=== PATIENT | male | born 1990 | race Caucasian/White ===

== ENCOUNTER 2017-06-20 18:23 | Emergency (ER) | payer MEDICAID, SELFPAY ==
[2017-06-20 18:24] VITALS: BP 130/82; PULSE 131; RESP 24; TEMP 37.2; O2SAT 98; BMI 24.3
--- NOTE | 2017-06-20 18:48 | EKG12_ITS ---
Test Reason : Blood Pressure : / mmHG Vent. Rate : 115 BPM Atrial Rate : 115 BPM P-R Int : 130 ms QRS Dur : 082 ms QT Int : 302 ms P-R-T Axes : 073 066 026 degrees QTc Int : 417 ms Sinus tachycardia Otherwise normal ECG Confirmed by HORTENCIA RING, MCKINLEY ([id number]), primer expeditor and drier DEBORAH LOPEZ ([id number] on 06/23/2017 12:51:45 PM Referred By: TREVOR Confirmed By:MCKINLEY BURNETT MD
--- NOTE | 2017-06-20 19:10 | RAD_ITS ---
STUDY: X-RAY CHEST REASON FOR EXAM: Male, 26 years old. Cough. Congestion. TECHNIQUE: PA and lateral views of the chest. COMPARISON: None. FINDINGS: The lungs are clear and expanded. There is no demonstrated pleural abnormality. Normal size heart. Normal mediastinum and ambika. Normal visualized pulmonary arteries. Normal visualized aortic arch and descending thoracic aorta. Normal visualized thoracic spine. Normal visualized ribs, clavicles, and shoulders. There is no demonstrated abnormality of the visualized soft tissue structures of the upper abdomen. RAD/Chest PA and Lateral IMPRESSION: Normal x-ray examination of the chest. Electronically Signed: Alex Hiutron MD at 19:44 EDT , Service support ,
[2017-06-20 19:13] LABS: Absolute Lymphocyte Count 1.39 X10^3/ul (0.83-4.51); Absolute Neutrophil Count 10.3 X10^3/uL (2.0-7.7); Basophil# 0.02 X10^3/uL; Basophil% 0.2 % (0-1); Eosinophil# 0.03 X10^3/uL; Eosinophils% 0.2 % (0-5); Hematocrit 46.6 % (40-54); Hemoglobin 15.8 g/dl (13.0-16.5); Lymphocyte # 1.39 X10^3/ul (4.0); Lymphocyte % 11.3 % (19-41); Mean Corp Hgb Conc 33.9 g/gl (32-36); Mean Corpuscular Hgb 31.3 pg (27.0-32.0); Mean Corpuscular Volume 92.5 fL (80-94); Mean Platelet Vol. 9.1 fl (6.2-12.0); Monocyte# 0.55 X10^3/uL; Monocyte% 4.5 % (0-10); Neutrophil # 10.25 X10^3/uL (2.7-7.7); Neutrophil % 83.4 % (47-70); POSITIVE COUNT NO; POSITIVE DIFFERENTIAL NO; POSITIVE MORPHOLOGY NO; Platelet Count 322 K/mm3 (150-450); RBC Distribution Width CV 12.2 % (11.6-14.6); RBC Distribution Width SD 40.8 fl (35.1-43.9); Red Blood Count 5.04 M/mm3 (4.6-6.2); White Blood Count 12.3 K/mm3 (4.4-11.0)
[2017-06-20 19:19] VITALS: O2SAT 95
[2017-06-20] MEDS: 0.9% Normal Saline 1,000 ML 999 ML IV ×2 (19:20→21:01)
[2017-06-20 19:35] LABS: Anion Gap 7 (5-15); BUN 11 mg/dL (7-18); BUN/Creat Ratio 9.6 RATIO (10-20); Calcium,Total 9.7 mg/dL (8.5-10.1); Chloride 104 mmol/L (98-107); Creatinine, Serum 1.15 mg/dL (0.70-1.30); EST Glomerular Filtration Rate 82 mL/min (>60); Est Glom Filt Rate - Afr Amer 99 mL/min (>60); Estimated Creatinine Clearance 98.19 ml/min; Glucose 146 mg/dL (74-106); Potassium 3.6 mmol/L (3.5-5.1); Sodium Level 139 mmol/L (136-145)
--- NOTE | 2017-06-20 19:52 | ED.RN ---
LACTIC 3.2
[2017-06-20 19:53] LABS: Lactic Acid 3.2 mmol/L (0.4-2.0)
[2017-06-20 21:00] VITALS: BP 113/73; PULSE 91; RESP 14; O2SAT 94
[2017-06-20 21:11] LABS: Bacteria 0 SEEN /hpf (None Seen); Red Blood Cells-Urine 0 SEEN /hpf (0-5); Squamous Epithelial Cells - UA 0 SEEN /hpf (0-5)
[2017-06-20 21:27] LABS: Color, Urine Yellow (Yellow); Glucose, Dipstick Normal (Normal); Ketone-Dipstick 5 mg/dl (Negative); Leukocyte Esterase-Dipstick 25 /ul (Negative); Nitrite-Dipstick Negative (Negative); Occult Blood-Urine Negative /ul (Negative); Protein-Dipstick 30 mg/dl (Negative); Urine Bilirubin Dipstick Negative (Negative); Urine Clarity Clear (Clear); Urine Urobilinogen 8 mg/dl (Normal)
[2017-06-20 21:47] LABS: Mucous, Urine 3+ /hpf (<or=2+); White Blood Cells 0-5 SEEN /hpf (0-5)
--- NOTE | 2017-06-20 22:12 | ED.DCSUM_ITS ---
- ER Visit Summary Date of Service: 06/20/17 Chief Complaint: Cough History of Present Illness: The patient is a 26 M with no primary care physician. He reports his cough began 10 days ago. Is productive of yellow/ green/brown sputum. He reports there were streaks of blood the other day. States he has had a fever to 104?. He has also had chills. He has a sore throat is 2 out of 10 severity. He has had mild shortness of breath and has been wheezing. Does not have an inhaler he uses. He denies any ankle swelling or calf pain. No personal or family history of DVT. No recent travel. No chest pain. Physical Examination: Vitals: 90.9, 130/82, 131, 24, 98% on room air which is not hypoxic. General: Well-nourished and well-developed. Head: Normocephalic atraumatic. Neck: Supple, no lymphadenopathy. No JVD. Nontender. Cardiovascular: Regular rate and rhythm. No murmurs. Respiratory: No respiratory distress. Clear to auscultation bilaterally. Abdominal: Soft, nontender, nondistended, normal bowel sounds. No guarding, rebound, or peritoneal signs. Back: Nontender. Extremities: Nontender, no edema. Skin: Normal color, no rash. Neurologic: Alert and oriented ?3. Cranial nerves II through XII are intact. Normal strength and sensation. Psych: Normal affect. Test Results: EKG is sinus tach at 115 with no acute changes. His heart rate in 2013 on EKG was 124. In 2008 it was 130. Chest x-ray shows chronic changes. CBC is more for white count 12.3 with 83 segmented neutrophils and 11 lymphocytes. Chem-7 more for glucose 146. UA is negative. Influenza was negative. Lactic acid is elevated at 3.2. Emergency Department Course and Treatment: Patient was given 2 L of normal saline and on repeat exam his heart rate is in the 90s. He is resting comfortably would like to go home. He is treated with Zithromax p.o. Treatment Plan: Patient be discharged Zithromax. Instructed to push fluids. Follow-up Dr. Jese Ruiz in 1 week if not improving. Return to the emergency department for any worsening symptoms. Disposition: To home in improved and stable condition. Impression: 1. URI. This note was generated with localbaconation software. It may contain incorrect words, spelling, and punctuation that were not noted in review of the chart prior to signing ED Disposition - Plan for ED Patient: Disposition: Home or Assisted Living Chief Complaint: Cough Instructions: ED Upper Resp Infec Abx Tx Prescriptions: Azithromycin [Zithromax] 250 mg PO DAILY #6 tablet Referrals: Jese Ruiz MD [STAFF PHYSICIAN] - 1 Week if not improving
[2017-06-20] MEDS: Azithromycin 250 MG Tablet 500 MG PO (22:38)
[2017-06-20 22:39] VITALS: BP 99/67; PULSE 78; RESP 18; O2SAT 98
[2017-06-20 23:08] LABS: Reflex Lactate? Y
== END 2017-06-20 22:39 | disposition home or self-care (01) ==
LOC: ED 19:11
PROVIDERS: Emergency Provider Emergency Medicine
DX: J06.9 Acute upper respiratory infection, unspecified (principal); Z72.0 Tobacco use
CPT/HCPCS: 71046; 80048; 81001; 83605; 85025; 87040; 87086; 87804; 93005; 96360; 96361; 99285; J7030

== ENCOUNTER 2017-07-03 20:59 | Emergency (ER) | payer MEDICAID, SELFPAY ==
[2017-07-03 21:01] VITALS: BP 155/68; PULSE 130; RESP 15; TEMP 37.3; O2SAT 94; BMI 24.7
--- NOTE | 2017-07-03 21:33 | ED.VISSUMM ---
- ER Visit Summary Date of Service: 07/03/17 Chief Complaint: Mental status change History of Present Illness: The patient is a 26 M reported called out for mental status change. However EMS arrival patient is awake sitting on the couch. Reported patient had slurred speech prior. Patient denies this. History of prediabetes. Patient currently states feels normal. He denies any alcohol or illicit drug use. He does smoke tobacco. There is no medications given to the patient for overdose reversals. Physical Examination: General: Alert and oriented ?3, no acute distress HEENT: Normocephalic, atraumatic. Moist mucosa membranes Neck: supple, nontender. Cardiovascular: Regular rate 114 and rhythm, no murmurs Respiratory: Normal breath sounds, symmetric, no distress Abdomen: Soft, nontender, nondistended Extremities: Nontender, no edema, pulses intact ?4 Neuro: no focal neurological deficits. Test Results: [] Emergency Department Course and Treatment: Patient heart rate recheck from triage 130 to 114. He denied alcohol or illicit drug use. Patient denies any symptoms. There is no focal neurological deficits. He is alert and oriented ?3. Discussed with no clear picture for workup with labs in EKG. However he declines this. States he would like to go home. His significant other is with him will take him home. Discussed bring him back or call 911 if symptoms return. They understand and agree with plan. Records were reviewed did note he had to overdose visits in the ED. Treatment Plan: [] Disposition: Discharge Impression: 1. Transient mental status change 2. Tachycardia This note was generated with [employer] dictation software. It may contain incorrect words, spelling, and punctuation that were not noted in review of the chart prior to signing ED Disposition - Plan for ED Patient: Disposition: Home or Assisted Living Chief Complaint: Alt LOC Diagnosis: Transient mental status change, Tachycardia Instructions: ED Confusion Referrals: Care Physician,No Primary [Primary Care Provider] - Additional Instructions: Follow-up with your doctor. Return if any worsening symptoms.
--- NOTE | 2017-07-03 21:37 | ED.DCSUM_ITS ---
- ER Visit Summary Date of Service: 07/03/17 Chief Complaint: Mental status change History of Present Illness: The patient is a 26 M reported called out for mental status change. However EMS arrival patient is awake sitting on the couch. Reported patient had slurred speech prior. Patient denies this. History of prediabetes. Patient currently states feels normal. He denies any alcohol or illicit drug use. He does smoke tobacco. There is no medications given to the patient for overdose reversals. Physical Examination: General: Alert and oriented ?3, no acute distress HEENT: Normocephalic, atraumatic. Moist mucosa membranes Neck: supple, nontender. Cardiovascular: Regular rate 114 and rhythm, no murmurs Respiratory: Normal breath sounds, symmetric, no distress Abdomen: Soft, nontender, nondistended Extremities: Nontender, no edema, pulses intact ?4 Neuro: no focal neurological deficits. Test Results: [] Emergency Department Course and Treatment: Patient heart rate recheck from triage 130 to 114. He denied alcohol or illicit drug use. Patient denies any symptoms. There is no focal neurological deficits. He is alert and oriented ? 3. Discussed with no clear picture for workup with labs in EKG. However he declines this. States he would like to go home. His significant other is with him will take him home. Discussed bring him back or call 911 if symptoms return. They understand and agree with plan. Records were reviewed did note he had to overdose visits in the ED. Treatment Plan: [] Disposition: Discharge Impression: 1. Transient mental status change 2. Tachycardia This note was generated with [employer] dictation software. It may contain incorrect words, spelling, and punctuation that were not noted in review of the chart prior to signing ED Disposition - Plan for ED Patient: Disposition: Home or Assisted Living Chief Complaint: Alt LOC Diagnosis: Transient mental status change, Tachycardia Instructions: ED Confusion Referrals: Care Physician,No Primary [Primary Care Provider] - Additional Instructions: Follow-up with your doctor. Return if any worsening symptoms.
[2017-07-03 21:45] VITALS: PULSE 114; RESP 16; O2SAT 98
--- NOTE | 2017-07-03 21:45 | ED.RN ---
REVIEWED D/C INSTRUCTIONS, FOLLOW UP CARE, AND S/S THAT WOULD WARRANT A RETURN TO THE ED WITH PT. PT VERBALIZED AN UNDERSTANDING AND DENIES FURTHER QUESTIONS FOR THIS RN. PT SKIN P/W/D, RESP EVEN AND UNLABORED, PT A&O X 3, NO DISTRESS NOTED. PT AMBULATED OUT OF ED, GAIT STEADY.
== END 2017-07-03 21:46 | disposition home or self-care (01) ==
PROVIDERS: Emergency Provider Emergency Medicine
DX: R41.82 Altered mental status, unspecified (principal); R00.0 Tachycardia, unspecified; F17.200 Nicotine dependence, unspecified, uncomplicated
CPT/HCPCS: 99284; J7030

== ENCOUNTER 2017-08-02 08:25 | Emergency (ER) | payer MEDICAID, SELFPAY ==
--- NOTE | 2017-08-02 08:25 | DT_ITS ---
This patient was seen during an EMR downtime August 01, 2017 - August 08, 2017. This patient may have a combination of paper and electronic documentation or all paper documentation. All documentation is viewable within the e-chart portion of [employer] for each patient visit.
[2017-08-12 17:50] LABS: Bedside Glucose 137 mg/dL (70-110)
== END 2017-08-02 09:00 | disposition home or self-care (01) ==
PROVIDERS: Emergency Provider Emergency Medicine
DX: T40.1X1A Poisoning by heroin, accidental (unintentional), initial encounter (principal); R41.82 Altered mental status, unspecified; Y92.9 Unspecified place or not applicable; F17.210 Nicotine dependence, cigarettes, uncomplicated
CPT/HCPCS: 82962; 96374; 99284; A4216

== ENCOUNTER 2017-08-24 10:50 | Inpatient (IN) | payer MEDICAID, SELFPAY ==
[2017-08-24 11:11] VITALS: BMI 22.1; BMI 22.2
[2017-08-24 11:34] VITALS: BP 115/64; PULSE 83; RESP 18; TEMP 36.8; O2SAT 100
[2017-08-24] MEDS: Buprenorphine HCl 2 MG TAB.SUBL SL ×2 (11:55→20:03)
[2017-08-24] MEDS: Dicyclomine 10 MG Capsule 20 MG PO ×2 (11:55→22:33)
[2017-08-24 11:57] VITALS: BP 115/64; PULSE 83; RESP 18; TEMP 36.8
--- NOTE | 2017-08-24 12:20 | PCM.HP.STD ---
Problem List (1) Chronic hepatitis C Status: Chronic (2) Tobacco abuse Status: Chronic (3) Heroin abuse Status: Chronic History of Present Illness Date of Admission: 08/24/17 Chief Complaint: Opioid withdrawal. The patient is a 26 year old M with past medical history as mentioned above presented to the [facility] service office requesting admission for medical stabilization due to acute withdrawal. Patient has been using IV heroin total of around 15 years. He went into detox program back in October, but he relapsed. He has been using IV heroin daily for the last 4 months and his last dose was yesterday. Before that, he was clean for couple of months. He admitted using occasional methamphetamines as well. His main presenting complaints today were abdominal pain, described as abdominal cramps, generalized, mild, 4 out of 10 in severity, associated with mild diarrhea and also complains of anxiety and restlessness. He denies fever chills. He reported crawling sensation on his skin as well. He denied chest pain or shortness of breath. At this time, vital signs are stable. He is being admitted for acute opioid withdrawal for medical stabilization. Past Medical History Past Medical History (Chronic Problems): Chronic Problems Chronic hepatitis C (Chronic) Tobacco abuse (Chronic) Heroin abuse (Chronic) Allergies No Known Allergies Allergy (Verified 07/03/17 21:08) Home Medications: Ambulatory Orders Medication Instructions Recorded NK [NK] 07/03/17 Surgical History: no surgical history Psychiatric History: No pertinent psych hx Lives: Spouse/ Significant Other Smoking Status: Current every day smoker Tobacco Use: Cigarettes Alcohol: None Drugs: Heroin - *Family History Maternal History Items: Hypertension Paternal History Items: No pertinent history Review of Systems Constitutional: Denies: Anorexia, Chills, Fever, Weakness Eyes: Denies: Blurred vision, Double vision, Drainage, Redness HEENT: Denies: Difficulty Hearing, Ear Pain, Eye Pain, Nasal Congestion, Sore Throat Cardiovascular: Denies: Chest Pain, Chest Tightness, Edema, Light Headedness, Palpitations, Syncope Respiratory: Denies: Cough, Pleuritic Pain, Shortness of Breath, Shortness of breath upon exertion, Sputum production, Wheezing Gastrointestinal: Reports: Abdominal Pain, Diarrhea. Denies: Constipation, Hematochezia, Nausea, Vomiting Genitourinary: Denies: Dysuria, Frequency, Hematuria Musculoskeletal: Denies: Arm Pain, Back Pain, Foot Pain Skin: Denies: Dryness, Rash Neurological: Denies: Balance problems, Change in Speech, Slurred speech, Headaches, Incoordination, Numbness Psychiatric: Denies: Anxiety, Depression Endocrine: Denies: Change in Body Habitus, Polydipsia VTE Information - Inpt Only VTE Present on Admission: No VTE Mechan Device Prophylaxis: None VTE Pharm Prophylaxis ordered?: No - Physical Exam General: Alert, Oriented x3, Cooperative, No apparent distress HEENT: Atraumatic, PERRLA, EOMI, Normocephalic Oral: Moist Mucosa, No Gingival or Mucosal Lesions/ Ulcerations Neck: Supple, No JVD, Negative Carotid Bruits, Trachea Midline, Thyroid Normal Size and Texture Cardiovascular: Regular rate, Regular Rhythm, Normal S1, Normal S2, No murmurs Abdomen: Bowel Sounds Present, Soft, Non Tender, Non-Distended, No Hepato-splenomegaly Extremities: No clubbing, No cyanosis, No edema Skin: No rashes, No breakdown Lymphatic: No Cervical, Supraclavicular, or Inguinal Adenopathy Neurological: Cranial nerves II-XII grossly intact, Motor Exam 5/5 strength throughout Psych/Mental Status: Normal Affect, Appropriate, Alert and oriented to time, place, person, mood and affect Vital Signs Temp Pulse Resp BP Pulse Ox 98.2 F 83 18 115/64 100 08/24/17 11:57 08/24/17 11:57 08/24/17 11:57 08/24/17 11:57 08/24/17 11:34 Oxygen Delivery Method Room Air Weight: 150 lb Body Mass Index (BMI) 22.1 Laboratory Tests Past 24 Hrs 08/24/17 11:24 Ethyl Alcohol Pending Assessment/Plan This is a 26 years old male patient presented to the [facility] service office requesting admission for medical stabilization from acute opioid withdrawal. #1 acute opioid withdrawal: Patient has been using IV heroin daily for the last 4 months, has been clean for couple of months before that and his last dose was yesterday. He was admitted at [facility] for medical stabilization but he relapsed. At this time, vital signs are stable. Plan: Admit to [facility] floor, urine drug screen, blood alcohol level, initiate [facility] protocol with tapering course of Subutex, as needed Catapres, Bentyl, Vistaril, methocarbamol, Zofran, Mirapex and Seroquel. #2 polysubstance abuse: Patient admitted using occasional meth amphetamines but mainly, he used IV heroin. Plan as above. #3 chronic hepatitis C: Never been treated for it. Stable. #4 tobacco abuse: NicoDerm patch. #5 DVT prophylaxis: Low risk patient, no prophylaxis indicated. This note was generated with [employer] dictation software. It may contain incorrect words, spelling, and punctuation that were not noted in checking the note before signing. Code Visit Inpatient E&M: 77485 Init Hosp L2
--- NOTE | 2017-08-24 12:27 | HP.PCM_ITS ---
Problem List (1) Chronic hepatitis C Status: Chronic (2) Tobacco abuse Status: Chronic (3) Heroin abuse Status: Chronic History of Present Illness Date of Admission: 08/24/17 Chief Complaint: Opioid withdrawal. The patient is a 26 year old M with past medical history as mentioned above presented to the [facility] service office requesting admission for medical stabilization due to acute withdrawal. Patient has been using IV heroin total of around 15 years. He went into detox program back in October, but he relapsed. He has been using IV heroin daily for the last 4 months and his last dose was yesterday. Before that, he was clean for couple of months. He admitted using occasional methamphetamines as well. His main presenting complaints today were abdominal pain, described as abdominal cramps, generalized , mild, 4 out of 10 in severity, associated with mild diarrhea and also complains of anxiety and restlessness. He denies fever chills. He reported crawling sensation on his skin as well. He denied chest pain or shortness of breath. At this time, vital signs are stable. He is being admitted for acute opioid withdrawal for medical stabilization. Past Medical History Past Medical History (Chronic Problems): Chronic Problems Chronic hepatitis C (Chronic) Tobacco abuse (Chronic) Heroin abuse (Chronic) Allergies No Known Allergies Allergy (Verified 07/03/17 21:08) Home Medications: Ambulatory Orders Medication Instructions Recorded NK [NK] 07/03/17 Surgical History: no surgical history Psychiatric History: No pertinent psych hx Lives: Spouse/ Significant Other Smoking Status: Current every day smoker Tobacco Use: Cigarettes Alcohol: None Drugs: Heroin - *Family History Maternal History Items: Hypertension Paternal History Items: No pertinent history Review of Systems Constitutional: Denies: Anorexia, Chills, Fever, Weakness Eyes: Denies: Blurred vision, Double vision, Drainage, Redness HEENT: Denies: Difficulty Hearing, Ear Pain, Eye Pain, Nasal Congestion, Sore Throat Cardiovascular: Denies: Chest Pain, Chest Tightness, Edema, Light Headedness, Palpitations, Syncope Respiratory: Denies: Cough, Pleuritic Pain, Shortness of Breath, Shortness of breath upon exertion, Sputum production, Wheezing Gastrointestinal: Reports: Abdominal Pain, Diarrhea. Denies: Constipation, Hematochezia, Nausea, Vomiting Genitourinary: Denies: Dysuria, Frequency, Hematuria Musculoskeletal: Denies: Arm Pain, Back Pain, Foot Pain Skin: Denies: Dryness, Rash Neurological: Denies: Balance problems, Change in Speech, Slurred speech, Headaches, Incoordination, Numbness Psychiatric: Denies: Anxiety, Depression Endocrine: Denies: Change in Body Habitus, Polydipsia VTE Information - Inpt Only VTE Present on Admission: No VTE Mechan Device Prophylaxis: None VTE Pharm Prophylaxis ordered?: No - Physical Exam General: Alert, Oriented x3, Cooperative, No apparent distress HEENT: Atraumatic, PERRLA, EOMI, Normocephalic Oral: Moist Mucosa, No Gingival or Mucosal Lesions/ Ulcerations Neck: Supple, No JVD, Negative Carotid Bruits, Trachea Midline, Thyroid Normal Size and Texture Cardiovascular: Regular rate, Regular Rhythm, Normal S1, Normal S2, No murmurs Abdomen: Bowel Sounds Present, Soft, Non Tender, Non-Distended, No Hepato- splenomegaly Extremities: No clubbing, No cyanosis, No edema Skin: No rashes, No breakdown Lymphatic: No Cervical, Supraclavicular, or Inguinal Adenopathy Neurological: Cranial nerves II-XII grossly intact, Motor Exam 5/5 strength throughout Psych/Mental Status: Normal Affect, Appropriate, Alert and oriented to time, place, person, mood and affect Vital Signs Temp Pulse Resp BP Pulse Ox 98.2 F 83 18 115/64 100 08/24/17 11:57 08/24/17 11:57 08/24/17 11:57 08/24/17 11:57 08/24/17 11:34 Oxygen Delivery Method Room Air Weight: 150 lb Body Mass Index (BMI) 22.1 Laboratory Tests Past 24 Hrs 08/24/17 11:24 Ethyl Alcohol Pending Assessment/Plan This is a 26 years old male patient presented to the [facility] service office requesting admission for medical stabilization from acute opioid withdrawal. #1 acute opioid withdrawal: Patient has been using IV heroin daily for the last 4 months, has been clean for couple of months before that and his last dose was yesterday. He was admitted at [facility] for medical stabilization but he relapsed. At this time, vital signs are stable. Plan: Admit to [facility] floor, urine drug screen, blood alcohol level, initiate [facility] protocol with tapering course of Subutex, as needed Catapres, Bentyl, Vistaril, methocarbamol , Zofran, Mirapex and Seroquel. #2 polysubstance abuse: Patient admitted using occasional meth amphetamines but mainly, he used IV heroin. Plan as above. #3 chronic hepatitis C: Never been treated for it. Stable. #4 tobacco abuse: NicoDerm patch. #5 DVT prophylaxis: Low risk patient, no prophylaxis indicated. This note was generated with [employer] dictation software. It may contain incorrect words, spelling, and punctuation that were not noted in checking the note before signing. Code Visit Inpatient E&M: 02931 Init Hosp L2
[2017-08-24 12:46] LABS: Alcohol, Blood (Medical)-Serum < 3.0 mg/dL
[2017-08-24] MEDS: Methocarbamol 750 MG Tablet PO ×2 (13:15→22:32)
[2017-08-24] MEDS: Pramipexole Di-HCl 0.25 MG Tablet PO (13:15)
[2017-08-24] MEDS: cloNIDine HCl 0.1 MG Tablet PO ×2 (13:18→22:33)
[2017-08-24 14:00] VITALS: BP 121/59; PULSE 70; RESP 14; TEMP 36.7
[2017-08-24] MEDS: Acetaminophen 500 MG Tablet PO (14:23)
[2017-08-24] MEDS: QUEtiapine 25 MG Tablet PO ×2 (14:24→22:35)
[2017-08-24] MEDS: hydrOXYzine PAM 25 MG Capsule 50 MG PO (14:24)
[2017-08-24 15:23] LABS: Amphetamine Urine VISTA NEGATIVE (<1000 ng/mL); Barbiturate Urine VISTA NEGATIVE (< 200 ng/mL); Benzodiazepine Urine VISTA NEGATIVE (< 200 ng/mL); Cocaine Urine VISTA NEGATIVE (< 300 ng/mL); Ecstacy Urine VISTA NEGATIVE (< 500 ng/mL); Methadone Urine VISTA NEGATIVE (< 300 ng/mL); PCP Urine VISTA NEGATIVE (< 25 ng/mL); THC Urine VISTA NEGATIVE (< 50 ng/mL); Vista UDS pH Range 6
[2017-08-24 18:25] VITALS: BP 102/52; PULSE 72; RESP 16; TEMP 36.8
[2017-08-24 22:24] VITALS: BP 110/52; PULSE 76; RESP 14; TEMP 36.9
[2017-08-25 02:32] VITALS: BP 95/39; PULSE 53; RESP 14; TEMP 36.5
[2017-08-25] MEDS: Buprenorphine HCl 2 MG TAB.SUBL SL ×2 (04:49→11:17)
[2017-08-25 06:29] VITALS: BP 103/51; PULSE 64; RESP 18; TEMP 36.3
--- NOTE | 2017-08-25 09:21 | PCM.PROGNOTE ---
Subjective: Chief complaint: Follow-up after admission for acute opioid withdrawal for medical stabilization. Patient seen and examined. No acute events overnight. This morning, he mentioned that his legs are still restless, still feeling anxious and he complained of muscle aches. Abdominal discomfort improved, still nauseated. He has no more diarrhea. His vital signs are stable. - Physical Exam General: Alert, Oriented x3, Cooperative, No apparent distress HEENT: Atraumatic, PERRLA, EOMI, Normocephalic Oral: Moist Mucosa, No Gingival or Mucosal Lesions/ Ulcerations Neck: Supple, No JVD, Negative Carotid Bruits, Trachea Midline, Thyroid Normal Size and Texture Lungs: Clear to auscultation, Normal air movement, No rhonchi, No wheeze, No rales Cardiovascular: Regular rate, Regular Rhythm, Normal S1, Normal S2, No murmurs Abdomen: Bowel Sounds Present, Soft, Non Tender, Non-Distended, No Hepato-splenomegaly Extremities: No clubbing, No cyanosis, No edema Skin: No rashes, No breakdown Lymphatic: No Cervical, Supraclavicular, or Inguinal Adenopathy Neurological: Cranial nerves II-XII grossly intact, Motor Exam 5/5 strength throughout Psych/Mental Status: Normal Affect, Appropriate, Alert and oriented to time, place, person, mood and affect Vital Signs Temp Pulse Resp BP Pulse Ox 97.4 F L 64 18 103/51 L 100 08/25/17 06:29 08/25/17 06:29 08/25/17 06:29 08/25/17 06:29 08/24/17 11:34 Oxygen Delivery Method Room Air Weight: 149 lb 14.629 oz Body Mass Index (BMI) 22.1 Intake and Output for Last 24 Hours 08/23/17 08/24/17 08/25/17 23:59 23:59 23:59 Intake Total 250 / 250 600 / 600 Output Total 150 / 150 Balance 100 / 100 600 / 600 Laboratory Tests Past 24 Hrs 08/24/17 08/24/17 11:24 14:43 Urine Opiates Screen NEGATIVE Urine Methadone Screen NEGATIVE Ur Barbiturates Screen NEGATIVE Ur Phencyclidine Scrn NEGATIVE Ur Amphetamines Screen NEGATIVE U Methamphetamin-MDMA NEGATIVE U Benzodiazepines Scrn NEGATIVE Urine Cocaine Screen NEGATIVE U Cannabinoids Screen NEGATIVE Ur Drug Screen Comment Ethyl Alcohol < 3.0 Medical Necessity - Tobacco Use Smoking Status: Current every day smoker Tobacco Use: Cigarettes Assessment/Plan This is a 26 years old male patient presented to the [facility] service office requesting admission for medical stabilization from acute opioid withdrawal. #1 acute opioid withdrawal: He is on [facility] protocol with tapering course of Subutex, as needed Catapres, Bentyl, Vistaril, methocarbamol, Zofran, Mirapex and Seroquel. He is still symptomatic with restless legs, and anxiety and muscle aches. His vital signs are stable. Urine drug screen was negative. Blood alcohol level was less than 3. Patient has been using IV heroin daily for the last 4 months, has been clean for couple of months before that and his last dose was yesterday. He was admitted at [facility] for medical stabilization but he relapsed. Plan to continue same treatment. #2 polysubstance abuse: Patient admitted using occasional amphetamines but mainly, he used IV heroin. Plan as above. #3 chronic hepatitis C: Never been treated for it. Stable. #4 tobacco abuse: NicoDerm patch. #5 DVT prophylaxis: Low risk patient, no prophylaxis indicated. This note was generated with [employer] dictation software. It may contain incorrect words, spelling, and punctuation that were not noted in checking the note before signing. Code Visit Inpatient E&M: 66208 Subs Hosp L2
--- NOTE | 2017-08-25 09:24 | PN_ITS ---
Subjective: Chief complaint: Follow-up after admission for acute opioid withdrawal for medical stabilization. Patient seen and examined. No acute events overnight. This morning, he mentioned that his legs are still restless, still feeling anxious and he complained of muscle aches. Abdominal discomfort improved, still nauseated. He has no more diarrhea. His vital signs are stable. - Physical Exam General: Alert, Oriented x3, Cooperative, No apparent distress HEENT: Atraumatic, PERRLA, EOMI, Normocephalic Oral: Moist Mucosa, No Gingival or Mucosal Lesions/ Ulcerations Neck: Supple, No JVD, Negative Carotid Bruits, Trachea Midline, Thyroid Normal Size and Texture Lungs: Clear to auscultation, Normal air movement, No rhonchi, No wheeze, No rales Cardiovascular: Regular rate, Regular Rhythm, Normal S1, Normal S2, No murmurs Abdomen: Bowel Sounds Present, Soft, Non Tender, Non-Distended, No Hepato- splenomegaly Extremities: No clubbing, No cyanosis, No edema Skin: No rashes, No breakdown Lymphatic: No Cervical, Supraclavicular, or Inguinal Adenopathy Neurological: Cranial nerves II-XII grossly intact, Motor Exam 5/5 strength throughout Psych/Mental Status: Normal Affect, Appropriate, Alert and oriented to time, place, person, mood and affect Vital Signs Temp Pulse Resp BP Pulse Ox 97.4 F L 64 18 103/51 L 100 08/25/17 06:29 08/25/17 06:29 08/25/17 06:29 08/25/17 06:29 08/24/17 11:34 Oxygen Delivery Method Room Air Weight: 149 lb 14.629 oz Body Mass Index (BMI) 22.1 Intake and Output for Last 24 Hours 08/23/17 08/24/17 08/25/17 23:59 23:59 23:59 Intake Total 250 / 250 600 / 600 Output Total 150 / 150 Balance 100 / 100 600 / 600 Laboratory Tests Past 24 Hrs 08/24/17 08/24/17 11:24 14:43 Urine Opiates Screen NEGATIVE Urine Methadone Screen NEGATIVE Ur Barbiturates Screen NEGATIVE Ur Phencyclidine Scrn NEGATIVE Ur Amphetamines Screen NEGATIVE U Methamphetamin-MDMA NEGATIVE U Benzodiazepines Scrn NEGATIVE Urine Cocaine Screen NEGATIVE U Cannabinoids Screen NEGATIVE Ur Drug Screen Comment Ethyl Alcohol < 3.0 Medical Necessity - Tobacco Use Smoking Status: Current every day smoker Tobacco Use: Cigarettes Assessment/Plan This is a 26 years old male patient presented to the [facility] service office requesting admission for medical stabilization from acute opioid withdrawal. #1 acute opioid withdrawal: He is on [facility] protocol with tapering course of Subutex, as needed Catapres, Bentyl, Vistaril, methocarbamol, Zofran, Mirapex and Seroquel. He is still symptomatic with restless legs, and anxiety and muscle aches. His vital signs are stable. Urine drug screen was negative. Blood alcohol level was less than 3. Patient has been using IV heroin daily for the last 4 months, has been clean for couple of months before that and his last dose was yesterday. He was admitted at [facility] for medical stabilization but he relapsed. Plan to continue same treatment. #2 polysubstance abuse: Patient admitted using occasional amphetamines but mainly, he used IV heroin. Plan as above. #3 chronic hepatitis C: Never been treated for it. Stable. #4 tobacco abuse: NicoDerm patch. #5 DVT prophylaxis: Low risk patient, no prophylaxis indicated. This note was generated with [employer] dictation software. It may contain incorrect words, spelling, and punctuation that were not noted in checking the note before signing. Code Visit Inpatient E&M: 51162 Subs Hosp L2
[2017-08-25] MEDS: Methocarbamol 750 MG Tablet PO (11:17)
[2017-08-25] MEDS: Dicyclomine 10 MG Capsule 20 MG PO (11:19)
[2017-08-25 11:25] VITALS: BP 107/58; PULSE 62; RESP 16; TEMP 36.7
[2017-08-25 15:35] VITALS: BP 116/69; PULSE 90; RESP 16; TEMP 36.8
--- NOTE | 2017-08-25 15:56 | NURSING ---
information systems security manager and primary RN of patient seen getting on elevator without signing AMA form. informed the staff could not stop him prior to him leaving.
--- NOTE | 2017-08-25 16:04 | NURSING ---
Dr. De La O and Lauren from [facility] left without signing AMA form. was seen by staff getting into a car
--- NOTE | 2017-08-25 16:05 | PCM.DC.SUM ---
Discharge Date and Diagnosis Date of Admission: 08/24/17 Date of Discharge: 08/25/17 - Primary Discharge Diagnosis Acute opioid withdrawal admitted for medical stabilization. - Secondary Discharge Diagnosis Chronic Problems Chronic hepatitis C (Chronic) Tobacco abuse (Chronic) Heroin abuse (Chronic) Hospital Course and Treatment Operations: None Procedures: None Summary of Care Provided: Patient was admitted for acute opioid withdrawal for medical stabilization. He was started on [facility] protocol with tapering course of Subutex, as needed Catapres, Bentyl, Vistaril, methocarbamol, Zofran, Seroquel and Mirapex. His vital signs were stable. His urine drug screen was negative. Blood alcohol level was less than 3. Today afternoon, nursing staff reported that patient left the hospital AGAINST MEDICAL ADVICE without signing the AMA papers. Home Medications: Medications to take at Discharge NK [NK] 07/03/17 Primary Care Physician: Care Physician,No Primary [Primary Care Provider] - Disposition: Against Medical Advice Minutes spent on discharge:: 20 Medical Necessity - Tobacco Use Smoking Status: Current every day smoker Tobacco Use: Cigarettes Meaningful Use Info Meaningful Use Diagnoses (Choose all that apply): None applicable Code Visit Inpatient E&M: 09665 Disch Hosp
--- NOTE | 2017-08-25 16:11 | NURSING ---
attempted to contact patient thought his phone number listed without success.
--- NOTE | 2017-08-25 16:12 | NURSING ---
1555-RECEIVED PHONE CALL FROM FOLDING MACHINE TENDER STATING PATIENT LEFT FLOOR WITHOUT SIGNING OUT. PARACHUTE INSPECTOR ATTEMPTING TO FIND PATIENT AT THIS TIME. 1559-PHONE CALL FROM FOLDING MACHINE TENDER STATING PATIENT WAS SEEN GETTING INTO VEHICLE. THIS RN JUST RECENTLY IN TO ASSESS PATIENT. WITHDRAWAL SCORE AT THAT TIME WAS 2, PT HAD DENIED NEEDS. AND MO CASAS MADE AWARE BY BOSOM PRESSER.
== END 2017-08-25 15:56 | disposition left against medical advice (07) | DRG 433 ==
PROVIDERS: Admitting Provider Hospitalist; Visit Provider Hospitalist
DX: F11.23 Opioid dependence with withdrawal (principal); B18.2 Chronic viral hepatitis C; F17.210 Nicotine dependence, cigarettes, uncomplicated
CPT/HCPCS: 36415; 80307; 80320; 97802; G0480

== ENCOUNTER 2018-09-04 04:48 | Emergency (ER) | payer SELFPAY ==
[2018-09-04] VITALS (11 sets, daily range): BP systolic 90–121; BP diastolic 59–83; PULSE 32–145; RESP 4–23; TEMP 36.3; O2SAT 18–100; BMI 24.1
[2018-09-04] MEDS: Naloxone 2 MG/2 ML Syringe NS ×2 (04:50→04:51)
[2018-09-04] MEDS: Naloxone 2 MG/2 ML Syringe 4 MG IV (04:51)
--- NOTE | 2018-09-04 04:51 | ED.RN ---
PT GIVEN 4MG NARCAN IN @ .PT BEING MANUALLY BAGGED BY . 99 HEART RATE, IV 20 RIGHT WRIST BY ANAND RICHARD AT 0448. LABS OBTAINED 2 MG OF NARCAN GIVEN IN R WRIST BY ANAND RICHARD 0451. 150/92 101 HR 100% BAGGED 100% O2. 2MG NARCAN GIVEN IV RW BY ANAND RICHARD @0454. 22G PIV PLACED IN LEFT HAND BY PAULA RICHARD @0455 LABS OBTAINED. PT IS AWAKE AND FIGHTING BEING BAGGED. HR 130 SOFT RESTRAINTS APPLIED AT 0502. 20MG OF HM9DMSS GIVEN IM RIGHT VL BY ANAND RICHARD @ 0503. HR 134, 24 RR 90% ON RA PT IS ALERT, NOT FOLLOWING VERBAL COMMANDS, MAKING NOISES AND THRASHING, UNABLE TO OBTAIN BP AT THIS TIME DUE TO PT MOVEMENT. BG 233 @0506. HR 151, RR 20, 92% RA. 1MG OF ATIVAN GIVEN @0513 BY PAULA RICHARD IN PIV RW. PT CONTINUES TO THRASH ABOUT, PT IS MANAGING HIS AIRWAY, YELLING AND GRUNTING INCOHERENTLY, PT DOES NOT FOLLOW VERBAL COMMANDS OR ANSWER QUESTIONS DIRECTED AT HIM. 167 HR, 18 RR, 88% ON ROOM AIR @0516.
[2018-09-04] MEDS: Ziprasidone IM 20 MG/ML VIAL IM (05:03)
[2018-09-04] MEDS: LORazepam 2 MG/ML Syringe 1 MG IV (05:13)
--- NOTE | 2018-09-04 05:13 | ED.DCSUM_ITS ---
History of Present Illness Narrative: According to friend, patient overdosed on heroin and was found down, the using of the drug was not witnessed. He is a daily heroin user. She does not know if he uses any other substances. Our ER staff pulled him out of a private vehicle unresponsive. <Alex Collazo - Last Filed: 09/04/18 08:11> <Anthony Bear - Last Filed: 09/04/18 10:53> Chief Complaint: Overdose - Past Medical History (1) Chronic hepatitis C Status: Chronic <ValeAlex - Last Filed: 09/04/18 08:11> Past Medical History Surgical History: no surgical history Smoking Status: Current every day smoker Drugs: Heroin - Family History Maternal Family History: Reports: Hypertension Paternal Family History: Reports: No pertinent history <ValeAlex - Last Filed: 09/04/18 08:11> <Anthony Bear - Last Filed: 09/04/18 10:53> - Allergies and Home Meds Allergies/Adverse Reactions: Allergies No Known Allergies Allergy (Verified 07/03/17 21:08) Review of Systems ROS: Unable to Obtain <Alex Collazo - Last Filed: 09/04/18 08:11> Physical Exam Inital Vital Signs reviewed: Yes General: Well nourished, Well developed Head: Normocephalic, Atraumatic Eyes: - - Pupils pinpoint and equal ENT: Moist mucous membranes, No rhinorrhea Neck: Supple - Without meningismus Cardiovascular: Regular rate, Regular rhythm, No murmurs, Tachycardia Respiratory: - - Apneic Abdomen: Soft, Nondistended, Normal bowel sounds Skin: Cyanosis - Perioral, No Trauma, Pallor, - - Multiple old track galindo both upper extremities, nothing that appears infected Neurological: Coma - Unresponsive, GCS 3 <Alex Collazo - Last Filed: 09/04/18 08:11> Vital Signs/Narrative: Vital Signs Pulse Resp BP Pulse Ox 09/04/18 10:46 93 12 96/70 100 09/04/18 08:43 99 13 93/66 100 <Anthony Bear - Last Filed: 09/04/18 10:53> Diagnostic/Tx/Re-eval - Rhythm Strip Rhythm Strip: Sinus Tach Ectopy: None - EKG Initial EKG Interpretation: - - Ectopic atrial rhythm at 99 with inverted P waves inferi wil. No acute injury pattern, normal axis and otherwise normal EKG. - Medical Decision Making Patient seen upon arrival. He was bagged with oxygen saturations in the 20-30% range on room air. We brought this up to the 90s and his color returned to normal. He never lost a pulse. He was given intranasal Narcan x2, for a total of 4 mg, prior to an IV being able to be obtained. When we had access, which occurred after 2 or 3 attempts due to him having very poor veins, we gave him Narcan 2 mg x 3 IV total before we had any response, or pupillary dilatation which then did occur to 5 mm. We waited in between Narcan vials for a clinical response, which was obtained only after the 3rd IV vial. He awoke and became extremely agitated, combative, confused. This did not settle down so we applied soft restraints and gave him Geodon 20 mg IM. He was then able to speak to his friend and the staff, saying that he was cold, but still screaming out and extremely agitated and unable to follow commands. He was given Ativan 1 mg at that point. This certainly helped, the patient is lethargic, arousable, still very physically agitated when stimulated, breathing well, tachycardic. He does not speak, only moans. His GCS is 2/2/5 = 9. If we leave the patient alone, he is lying still, with stable vital signs, in soft restraints, and does not appear in any distress or discomfort. It is possible and likely that with time, he will emerge from the withdrawal delirium that the Narcan likely put him in, and become more coherent and able to be discharged. Therefore my plan is to observe him longer in the emergency department. If he continues to require sedation for agitated delirium, he may need to be intubated for airway protection and admitted. - Critical Care Time Critical care time (excluding procedures): 30-74 minutes, Including time spent:, Discussing w/Patient &/or Family/[employer] Shop Supervisor, Performing Direct Patient Care at Bedside <Alex Collazo - Last Filed: 09/04/18 08:11> - Medical Decision Making Patient was reevaluated by me at 1050 AM. He is not lucid coherent and improved. I will discharge in stable condition <Anthony Bear - Last Filed: 09/04/18 10:53> ED Disposition <Alex Collazo - Last Filed: 09/04/18 08:11> <Anthony Bear - Last Filed: 09/04/18 10:53> - Plan for ED Patient: Disposition: Home or Assisted Living Diagnosis: Opiate overdose Instructions: Opiate Abuse, OVERDOSE, Accidental (Adult) Referrals: Care Physician,No Primary [Primary Care Provider] - 3-5 Days
--- NOTE | 2018-09-04 05:54 | ED.RN ---
AFTER RECEIVING 5 DOSES OF NARCAN, PT YELLING, ATTEMPTING TO GET OUT OF BED, IS CONFUSED, AND NOT FOLLOWING DIRECTIONS. SEVERAL NURSES AND PHYSICIAN IN THE ROOM ATTEMPTING TO EXPLAIN TO THE PT WHAT IS OCCURRING AND CALM THE PT. ATTEMPTING TO EXPLAIN TO THE PT THAT HE IS IN THE HOSPITAL AND HE OVERDOSED. PT CONTINUES TO ATTEMPT TO GET UP AND OUT OF BED. SOFT RESTRAINTS APPLIED TO BOTH WRISTS AND ANKLES. PT CONTINUES TO ACTIVELY MOVE AROUND THE BED AND YELLING. PT DOES NOT FOLLOW DIRECTIONS. PT IS NOT MAKING SENSE WHEN HE ATTEMPTS TO SPEAK. PT GIVEN ELIAZAR BOLAÑOS. FRIEND AT THE BEDSIDE ATTEMPTING TO HELP CALM THE PT. PT CONTINUES TO THRASH AROUND THE BED. IV ATIVAN GIVEN.
[2018-09-04 06:25] LABS: Absolute Lymphocyte Count 0.79 X10^3/ul (0.83-4.51); Absolute Neutrophil Count 15.7 X10^3/uL (2.0-7.7); Basophil# 0.02 X10^3/uL; Basophil% 0.1 % (0-1); Eosinophil# 0.01 X10^3/uL; Eosinophils% 0.1 % (0-5); Hematocrit 41.5 % (40-54); Hemoglobin 14.4 g/dl (13.0-16.5); Lymphocyte # 0.79 X10^3/ul (4.0); Lymphocyte % 4.4 % (19-41); Mean Corp Hgb Conc 34.7 g/gl (32-36); Mean Corpuscular Hgb 31.5 pg (27.0-32.0); Mean Corpuscular Volume 90.8 fL (80-94); Mean Platelet Vol. 9.4 fl (6.2-12.0); Monocyte# 1.35 X10^3/uL; Monocyte% 7.6 % (0-10); Neutrophil # 15.66 X10^3/uL (2.7-7.7); Neutrophil % 87.6 % (47-70); Platelet Count 158 K/mm3 (150-450); RBC Distribution Width CV 12.9 % (11.6-14.6); RBC Distribution Width SD 42.6 fl (35.1-43.9); Red Blood Count 4.57 M/mm3 (4.6-6.2); White Blood Count 17.9 K/mm3 (4.4-11.0)
[2018-09-04 06:31] LABS: POSITIVE COUNT NO; POSITIVE DIFFERENTIAL NO; POSITIVE MORPHOLOGY NO
[2018-09-04 06:38] LABS: Anion Gap 12 (5-15); BUN 15 mg/dL (7-18); BUN/Creat Ratio 16.5 RATIO (10-20); Calcium,Total 9.1 mg/dL (8.5-10.1); Chloride 103 mmol/L (98-107); Creatinine, Serum 0.91 mg/dL (0.70-1.30); EST Glomerular Filtration Rate 106 mL/min (>60); Est Glom Filt Rate - Afr Amer 128 mL/min (>60); Estimated Creatinine Clearance 115.01 ml/min; Glucose 105 mg/dL (74-106); Potassium 3.8 mmol/L (3.5-5.1); Sodium Level 138 mmol/L (136-145)
[2018-09-04 06:49] LABS: Alcohol, Blood (Medical)-Serum < 3.0 mg/dL
--- NOTE | 2018-09-04 07:30 | EKG12_ITS ---
Test Reason : OD Blood Pressure : / mmHG Vent. Rate : 099 BPM Atrial Rate : 099 BPM P-R Int : 140 ms QRS Dur : 086 ms QT Int : 348 ms P-R-T Axes : -81 078 033 degrees QTc Int : 446 ms Unusual P axis, possible ectopic atrial rhythm Abnormal ECG Confirmed by SUMAN RING, NATALIE ([id number]), editor index SHERRIE GABRIEL ([id number]) on 09/05/2018 1:36:09 PM Referred By: SEAN Confirmed By:NATALIE WILL MD
--- NOTE | 2018-09-04 11:18 | ED.RN ---
PT ATTEMPTED TO BE WAKENED. PT WAKES UPON VERBAL/PHYSICAL STIMULUS. FALLS IMMEDIATELY BACK TO SLEEP. SPOUSE CALLED TO COME STORE LEADER PT, LEFT VOICEMAIL.
[2018-09-05 07:25] LABS: Bedside Glucose 233 mg/dL (70-110)
== END 2018-09-04 14:01 | disposition home or self-care (01) ==
PROVIDERS: Emergency Provider Emergency Medicine
DX: T40.601A Poisoning by unspecified narcotics, accidental (unintentional), initial encounter (principal); R40.4 Transient alteration of awareness; Y92.9 Unspecified place or not applicable; F17.200 Nicotine dependence, unspecified, uncomplicated
CPT/HCPCS: 36415; 80048; 80320; 82962; 85025; 93005; 96372; 96374; 96375; 99251; 99285; A4216; G0463; G0480; J3486

== ENCOUNTER → 2020-11-08 | Outpatient (CLI) | payer MEDICAID, SELFPAY | END | disposition home or self-care (01) | PROVIDERS: Referring Provider Physician Assistant Surgical; Visit Provider Physician Assistant Surgical | DX: R05 Cough (principal) | CPT/HCPCS: 87635; U0005; U0003 ==

== ENCOUNTER 2021-12-30 20:25 | Emergency (ER) | payer OTHER, MEDICAID, SELFPAY ==
[2021-12-30 20:26] VITALS: BP 114/69; PULSE 76; RESP 16; TEMP 36.6; O2SAT 99; BMI 22.2
--- NOTE | 2021-12-30 21:14 | EX.ED.GENINJ ---
HPI History of Present Illness Chief Complaint: Laceration Narrative Narrative: 31-year-old male here for right hand laceration. Patient states having just prior to arrival patient as he has constant, sharp pain. He does not remember last tetanus. Pain is constant, severe, worse with movement and palpation improved by rest. Tetanus Immunization: <5 years [facility] Medical History unable to obtain Home Medications NK 07/03/17 [History Last Taken Unknown] Allergy/AdvReac Type Severity Reaction Status Date / Time No Known Allergies Allergy Verified 12/30/21 20:28 Social History Smoking Status: Unknown if ever smoked ROS ROS ED ROS Narrative Constitutional: Denies fever HEENT: Denies sore throat Neck: Denies neck pain Cardiovascular: Denies chest pain, syncope Respiratory: Denies shortness of breath GI: Denies nausea vomiting or abdominal pain : Denies changes in urinary habits Musculoskeletal: Denies muscle or joint pain Neurologic: Denies numbness weakness or loss of sensation Skin endorses laceration to hand EXAM Physical Exam Narrative Exam Narrative: Nursing triage notes reviewed, Vital signs reviewed Constitutional: please see mdm HENT: MMM Eyes: Pupils equal round and reactive to light, Extraocular muscles intact Neck: No stridor, no JVD, full neck ROM Lungs: Clear to auscultation, No wheezing or rales. No increased work of breathing, no conversational dyspnea, no accessory muscle use, no nasal flaring. No respiratory distress noted Heart: Regular rate and rhythm, No murmurs, No rubs and No gallops, 2+ distal pulses (radial, femoral, posterior tibial) in all extremities Abdomen: Soft, there is no tenderness, rigidity, rebound or guarding, no obvious peritoneal signs, no palpable pulsatile abdominal masses, no auscultated abdominal bruit : No CVAT Extremities: No edema Neuro: Intact 5/5 strength with ok sign (median), intact finger abduction (ulnar) intact wrist extension (radial n). Intact sensation in the radial, ulnar, and median nerve distributions. Skin: Const Vital Signs: 12/30/21 20:26 Temperature 97.8 F Temperature Source Temporal Pulse Rate 76 Respiratory Rate 16 Blood Pressure 114/69 Blood Pressure Mean 84 Pulse Ox 99 Oxygen Delivery Method Room Air PROC Procedures Lacerations Hand Laceration: Length: 0.39 in Depth: Skin Shape: Linear Prep: Sterile Conditions and Shure-Clens Laceration repair: Irrigated, Skin sutures and Wound explored Suture Information: Vicryl MDM MDM MDM Narrative Medical decision making narrative: The patient suffered lacerations to the right hand, first and second digit interspace There is no evidence to suggest foreign bodies were history and exam. Visual and tactile exams are unremarkable. There was no evidence of neurovascular injury. Patient had a normal distal vascular exam, and had full normal motor and sensory exams. There was also no evidence of tendon injury, with normal distal full range of motion, flexion, extension, abduction, abduction. There is no evidence of local joint space involvement at this time patient was irrigated with copious sterile normal saline and primary. Performed please see procedure note. The patient was given signs and symptoms warnings for infection, such as increasing pain, redness, swelling, associated heat, pus or fever. Patient was given instructions for timely follow-up for removal. Patient agreed with the plan of care Discharge Plan Triage Chief Complaint: Laceration ED Provider: Ray Kong Dx/Rx/DC Orders Clinical Impression: Hand laceration Prescriptions: No Action NK Stand Alone Forms: ED Work / School Excuse Primary Care Provider: Krystina Bell Referrals: Krystina Bell, DO [Primary Care Provider] - Activity Restrictions/Additional Instructions: He may return to work at full activity. Please look up signs of infection which include increased pain, white-yellow discharge, increased redness. The signs of LPs return to the ED right away. Please keep your wound covered and clean. Please do not wet your wound first 24 hours after which use normal hand hygiene Disposition Disposition: Home, Self Care Discharge Date/Time: 12/30/21 22:50
== END 2021-12-30 22:50 | disposition home or self-care (01) ==
PROVIDERS: Emergency Provider Emergency Medicine; PCP Family Medicine; Visit Provider Emergency Medicine
DX: S61.411A Laceration without foreign body of right hand, initial encounter (principal); W26.8XXA Contact with other sharp object(s), not elsewhere classified, initial encounter; Y93.89 Activity, other specified; Y99.0 Civilian activity done for income or pay
CPT/HCPCS: 12001; 99281; 99282

== ENCOUNTER → 2022-03-11 | Outpatient (CLI) | payer OTHER, MEDICAID, SELFPAY ==
[2022-03-11 18:57] LABS: Hepatitis C Antibody Preliminary Reactive (Nonreactive)
[2022-03-17 21:07] LABS: Hepatitis C Genotype 1a (.)
[2022-03-17 22:18] LABS: HCV log 10 5.849 (.)
== END | disposition home or self-care (01) ==
LOC: MFPLAB 14:44
PROVIDERS: PCP Family Medicine; Visit Provider Family Medicine
DX: B18.2 Chronic viral hepatitis C (principal)
CPT/HCPCS: 36415; 86803; 87522; 87902

== ENCOUNTER 2022-04-14 10:46 | Day surgery (SDC) | payer MEDICAID, SELFPAY ==
[2022-04-14 11:08] VITALS: BP 122/63; PULSE 80; RESP 16; TEMP 36.9; O2SAT 100; BMI 22.8
[2022-04-14] MEDS: Lactated Ringers 1,000 ML 15 ML IV (11:11)
--- NOTE | 2022-04-14 12:12 | PCM.HP.STD ---
HPI - General HPI Narrative INDRA URENA, is a 31 M who presents for right carpal tunnel release ECTR. no changes to h and p. still having numbness and weakness in the hand. ok to proceed. right wrist marked. no further questions. MR#: [id number] Acct: [id number] Name:INDRA FERMIN Rep #: [id number] : 1990 ? ? Provider: Dr. Radames Barbosa MD Age/Sex:? 31/M ? ? Location: [facility] [place].NIEVES Status: Signed Intake Intake Visit Reasons:?BL Hands Chief Complaint: BL hands Accompanied by: Significant Other Is patient in pain?: Yes Pain scale (1-10): 4 Allergies No Known Allergies Allergy (Verified 03/17/22 14:08) Medications naloxone 8 mg/actuation nasal spray 8 mg intranasal Q2M PRN 01/11/22 [History Confirmed 03/18/22] buprenorphine 8 mg-naloxone 2 mg sublingual film 1 film sublingual 03/18/22 [History Confirmed 03/18/22] PFSH Medical History? Bilateral carpal tunnel syndrome Bilateral hand pain Family History? Mother HypertensionFather Arthritis Social History? Smoking Status:? Unknown if ever smoked alcohol intake:? never HPI BL Hands Details: Parts of this documentation were recorded by a scribe, this documentation accurately reflects the service provided and the decisions made by me, Dr. Radames Barbosa MD 03/18/22 1000. INDRA URENA is a 31 year old M here today for follow-up bilateral upper extremity nerve conduction studies to assess for carpal tunnel syndrome.? The patient still finds that the hands are going numb during the day especially when he is working.? He has been trying the night splints.? Is aware of different forms of treatment such as injections and surgery.? Patient is right-hand dominant. Ortho Exam General General: Yes no acute distress Neurologic: Yes alert and Yes oriented x3 Psychologic: Yes reasonable and appropriate Right Wrist/Hand Skin/Wound: Yes CDI, No Swelling, No Ecchymosis, Yes nail intact and Yes capillary refill normal Left Wrist/Hand Skin/Wound: No Swelling and No Ecchymosis Supplemental Info Both lateral upper extremity nerve conduction studies for February 01, 2022 revealed moderate to severe bilateral median neuropathy at the wrists consistent with carpal tunnel syndrome and no other findings. Coding Level of Care Code Off vis,est,level 4 Diagnoses Bilateral carpal tunnel syndrome? G56.03 Assessment and Plan Assessment and Plan (1) Bilateral carpal tunnel syndrome: ?Status:?Acute ?Plan: 31-year-old man with evidence of bilateral carpal tunnel syndrome.? We again discussed the pros and cons risks and benefits of continued nonoperative management versus cortisone injections and endoscopic versus open surgery risks and benefits of each of those methods of treatment.? He would like to go ahead with endoscopic right carpal tunnel release.? Described the recovery 2 weeks to heal the incision 6 weeks prior to returning to heavy lifting or gripping.? He understands wishes to go ahead with right ECTR.? No further questions.? I did advise him also that his risk is elevated due to his hepatitis smoking (should quit or cut back) and other patient risk factors for complications or infection. Pros and cons risks and benefits were discussed with the patient including but not limited to infection, pain, stiffness, bleeding, damage to surrounding structures, neurovascular injury, recurrence or retear, failure or wear of hardware or fixation, instability, fracture, deep vein thrombosis and pulmonary embolism, anesthetic risks, patient dissatisfaction, need for further surgery and other risks.? Patient understood and wished to proceed with surgery, and signed the informed consent documentation. PFSH Medical History Bilateral carpal tunnel syndrome Bilateral hand pain Hepatitis Substance abuse Vapes nicotine containing substance Home Medications buprenorphine 8 mg-naloxone 2 mg sublingual film 1 film sublingual BID 03/18/22 [History Last Taken Unknown] Allergy/AdvReac Type Severity Reaction Status Date / Time No Known Allergies Allergy Verified 04/14/22 11:08 Family History Mother Hypertension Father Arthritis Surgical History (Updated 04/07/22 @ 13:32 by Joceline Gutierrez) No history of previous surgery Social History Smoking Status: Unknown if ever smoked alcohol intake: never Vital Signs Vital Signs Vital Signs: 04/14/22 11:08 04/14/22 11:08 Temperature 98.4 F Temperature Source Temporal Pulse Rate 80 Respiratory Rate 16 Respiratory Pattern Normal Blood Pressure 122/63 H Blood Pressure Mean 82 Blood Pressure Source Monitor Blood Pressure Position Semi-Fowlers Blood Pressure Location Right Arm Pulse Ox 100 Oxygen Delivery Method Room Air Weight Weight: 154 lb 5.177 oz Body Mass Index (BMI) 22.8
[2022-04-14] MEDS: Cefazolin 2 GM in 0.9% Normal Saline 100 ML IV (14:06)
--- NOTE | 2022-04-14 14:47 | OP.PCM_ITS ---
Problems Associated Problem List Diagnoses (1) Bilateral carpal tunnel syndrome: Report of Operation Date of Procedure: 04/14/22 Pre-Operative Diagnosis: right CTS Post-Operative Diagnosis: same Surgery/Procedure Performed:: right ECTR Surgeon: Radames Barbosa Type of Anesthesia: General and Local Anesthesiologist: Jay Peter Estimated Blood Loss (mL): 5 Description of Procedure: Patient was brought to the operating room theater.? The patient was administered 2 g of IV Ancef prior to the start of the procedure.? Placed supine on the operating room table.? Anesthesia induced GA.? SCDs on the legs.? Tourniquet applied to the right operative extremity, appropriately padded. Arm table used. Operative extremity prepped and draped in the usual sterile fashion with chlorhexidine-based prep solution allowing over 3 minutes drying time prior to draping.? Preoperative timeout performed to confirm the site patient and the surgery. Used the [employer] center line endoscopic carpal tunnel kit / technique. Tourniquet up 250mm. ?Used 0.25% bupivicaine for LA. I made a transverse 2 cm incision in l ine with the? transverse wrist crease.? This was in line with the fourth digit.? I carried the dissection down through skin and subcutaneous tissue achieved meticulous hemostasis. Just ulnar to palmaris tendon.? I incised the antebrachial fascia.? I passed sequential dilators into the carpal tunnel along the radial border of the Guyon's canal aiming for the fourth digit with the hand in extension.? I used a synovial elevator to identify the transverse fibers of the transverse carpal tunnel ligament.? Passed the scope into the carpal tunnel. Once I had identified the full proximal and distal extent of the ligament I fully released the ligament under direct visualization by deploying the blade and slowly withdrawing the scope made sequential passes until I no longer felt tension as well as the entire extent of the ligament was released under direct visualization.?Sounded the tunnel with grove tenotomy scissors, complete release, no bands. Arthroscope light was more visible through the skin. Pictures taken and saved. Wound thoroughly irrigated.? Tourniquet let down prior to end of the case and meticulous hemostasis achieved.? Thorough irrigation.? ? Incision closed with 3- 0 Monocryl.? Steri-Strips were applied after the skin was cleaned and dried. Adaptic, gauze, loose wrapped Andrews. Patient woken up,? transferred off the operating room table and taken to postanesthetic care unit in stable condition. All sponge needle instrument counts were correct no complications.? Plan for the patient to be discharged home according to day surgery criteria when they are comfortable. Follow-up in the office in 2 days time. Complications none Admit VTE Documentation VTE Present on Admission: No VTE Mechan Device Prophylaxis: None Reason prophylaxis not ordered:: Treatment Not Indicated Procedures Musculoskeletal [id number]: Other Procedure See Report
--- NOTE | 2022-04-14 14:50 | DCINST_ITS ---
Discharge Instructions Diet Discharge Diet: No restrictions Activity Discharge Activity: Return to Normal Activity Ice area for (Minutes): 10 Lifting Restrictions: rom as tolerated hand and fingers, no heavy lifting or gripping Dressing / Incision Call your doctor if your incision/area has: Continuous Slow Oozing, Increased Pain/ Swelling, Increased Redness, Foul Smelling Discharge and Swelling at the incision site Change Dressing in: do not change dressing Follow Up Care Please Follow Up With: Radames Barbosa MD When: 2 days Test Results: Test results from this visit will be discussed in further detail at your follow- up appointment, if applicable. Discharge Plan Admission Attending Provider: Radames Barbosa Primary Care Provider: Krystina Bell Discharge Orders/Prescriptions Prescriptions: No Action buprenorphine-naloxone 8-2 mg film 1 film sublingual BID Referrals / Follow Up: Krystina Bell DO [Primary Care Provider] - Disposition Disposition (needs filled in before D/C Order can be placed): Home, Self Care
[2022-04-14 15:03] VITALS: BP 115/76; BP 122/63; PULSE 73; RESP 17; TEMP 36.2; O2SAT 100
[2022-04-14 15:15] VITALS: BP 117/70; BP 122/63; PULSE 69; RESP 16; O2SAT 100
[2022-04-14 15:30] VITALS: BP 105/70; BP 122/63; PULSE 63; RESP 16; O2SAT 100
[2022-04-14 15:47] VITALS: BP 104/69; BP 122/63; PULSE 64; RESP 16; TEMP 36.7; O2SAT 100
[2022-04-14 16:20] VITALS: BP 119/78; BP 122/63; PULSE 63; RESP 16; TEMP 36.9; O2SAT 100
== END 2022-04-14 16:23 | disposition home or self-care (01) ==
LOC: SDC 10:50 → AC 10:53
PROVIDERS: PCP Family Medicine; Referring Provider Orthopaedic Surgery Sports Medicine; Visit Provider Orthopaedic Surgery Sports Medicine
PROC: (CPT 64721; principal; 2022-04-14 12:15)
DX: G56.03 Carpal tunnel syndrome, bilateral upper limbs (principal)
CPT/HCPCS: 64721; J7120; J2405